=== PATIENT | male | born 2000 | race Two or more races ===

== ENCOUNTER 2018-10-31 11:20 | Emergency (ER) | payer BC, OTHER ==
[~2018-10-31] VITALS: Ht 175.3 cm; Wt 99.8 kg
[2018-10-31] MEDS ORDERED: cloNIDine HCL 0.1 MG TAB ONE (11:39)
[2018-10-31] MEDS ORDERED: cloNIDine HCL 0.1 MG TAB PO ONE (11:45)
[2018-10-31 12:05] LABS: Basophils # (auto) 0.1 uL; Basophils % (auto) 0.7 % (0.0-2.0); Eosinophils # (auto) 0.1 uL; Eosinophils % (auto) 0.9 % (0.0-7.0); Lymphocytes # (auto) 3.3 uL; Lymphocytes % (auto) 30.7 % (10.0-50.0); Mean Corpuscular Hemoglobin 29.1 pg (28.0-32.0); Mean Corpuscular Hgb Conc. 34.7 g/dL (32.0-36.0); Mean Corpuscular Volume 83.9 fL (80.0-100.0); Monocytes # (auto) 0.5 uL; Neutrophils # (auto) 6.8 uL; Neutrophils % (auto) 62.7 % (37.0-80.0); Nucleated Red Blood Cells % 0.1 %; Platelet Count (auto) 332 10^3/uL (140-450); Red Blood Cells 5.84 10^6/uL (4.5-5.90); Red Cell Distribution Width 13.2 % (11.8-14.3); White Blood Cell 10.9 10^3/uL (4.4-10.8)
[2018-10-31 12:56] LABS: Urine Bacteria NONE SEEN /hpf (None Seen); Urine Blood Negative /uL (Negative); Urine Mucus FEW (None Seen); Urine WBC <1 /hpf (0 - 3)
[2018-10-31 13:08] LABS: Albumin 4.2 g/dL (3.4-5.0); Anion Gap 5 (5-15); Blood Urea Nitrogen 12 mg/dL (7-18); Calcium 8.9 mg/dL (8.5-10.1); Carbon Dioxide 27 mmol/L (21-32); Chloride 104 mmol/L (98-107); Glucose 92 mg/dL (74-106); Potassium 3.7 mmol/L (3.5-5.1); Sodium 136 mmol/L (136-145)
[2018-10-31 13:12] LABS: Alanine Aminotransferase 44 U/L (16-61); Alkaline Phosphatase 99 U/L (45-117); Aspartate Aminotransferase 22 U/L (15-37); Bilirubin, Total 0.5 mg/dL (0.2-1.0); GFR African American > 60 mL/min; GFR Non-African American > 60 mL/min; Total Protein 8.6 g/dL (6.4-8.2)
[2018-10-31 13:12] LABS: Alcohol, Urine < 3.0 mg/dL (0-5); Amphetamine Screen, Urine NEGATIVE (NEGATIVE); Barbiturate Scree,Urine NEGATIVE (NEGATIVE); Benzodiazephine Screen, Urine NEGATIVE (NEGATIVE); Cannabinoid Screen, Urine NEGATIVE (NEGATIVE); Cocaine Screen, Urine NEGATIVE (NEGATIVE); Opiate Scree,Urine NEGATIVE (NEGATIVE); Phencyclidine Screen, Urine NEGATIVE (NEGATIVE)
[2018-10-31 14:16] VITALS: BP 143/83
== END 2018-10-31 14:15 | disposition home or self-care (01) ==
LOC: ER 11:24
DX: I10 Essential (primary) hypertension (principal)
CPT/HCPCS: 36415; 71046; 80053; 80307; 81001; 85025

== ENCOUNTER → 2020-05-03 | Outpatient (CLI) | payer OTHER | END | disposition home or self-care (01) | LOC: LAB 14:46 | PROVIDERS: ATTEND Nurse Practitioner Family | DX: Z20.828 Contact with and (suspected) exposure to other viral communicable diseases (principal) ==

== ENCOUNTER 2020-06-21 13:53 | Emergency (ER) | payer MEDICAID, OTHER ==
[~2020-06-21] VITALS: Ht 175.3 cm; Wt 83.9 kg
[2020-06-21 14:02] VITALS: BP 149/95
[2020-06-21] MEDS ORDERED: cefTRIAXone SOD 1,000 MG VL IM ONE (14:45)
[2020-06-21] MEDS ORDERED: methylPREDNISolone SOD SUCC 125 MG/2 ML VL IM ONE (14:45)
== END 2020-06-21 16:03 | disposition home or self-care (01) ==
LOC: ER 13:53
DX: J03.90 Acute tonsillitis, unspecified (principal); I10 Essential (primary) hypertension
CPT/HCPCS: 87070; 87880; 96372; 99284; J0696; J2930; J7030